=== PATIENT | female | born 1995 | race Hispanic/Latino ===

== ENCOUNTER 2025-01-29 20:41 | Emergency (ER) | payer SELFPAY ==
[~2025-01-29] VITALS: Ht 157.5 cm; Wt 62.1 kg
[2025-01-29 21:32] LABS: IMMATURE GRANULOCYTE ABSOLUTE 0.03 K/uL (0-1); NUCLEATED RED BLOOD CELLS 0.0 % (0.0-0.19); PLATELET COUNT (AUTO) 273 K/uL (130-400); RED BLOOD CELL COUNT(AUTO) 4.32 MIL/uL (4.00-5.50); RED CELL DISTRIBUTION WIDTH 11.9 % (11.0-15.5); WHITE BLOOD COUNT (AUTO) 11.4 K/uL (4.8-10.8)
[2025-01-29 21:38] VITALS: BP 108/74; PULSE 91; RESP 20; TEMP 98.9; O2SAT 100
[2025-01-29 21:38] LABS: CREATININE 0.9 mg/dL (0.5-1.0); GLOMERULAR FILTR. RATE CALC 90.0 mL/min (>90); GLUCOSE,RANDOM 101.0 mg/dL (70-105); SODIUM SERUM 136.0 mmol/L (136-145); UREA NITROGEN, BLOOD 11.0 mg/dL (7-18)
--- NOTE | 2025-01-29 21:55 | ERN ---
ED Note History of Present Illness Stated Complaint: C/O DIARRHEA W/BURNING SENSATION TO ABD Chief Complaint: Diarrhea Time Seen by MD: 20:44 Dictation: 29-YEAR-OLD HEALTHY FEMALE PRESENTS TO ER COMPLAINTS OF 3 DIARRHEA EPISODES TODAY. COMPLAINTS OF BURNING TO ABDOMEN. DENIES FEVER OR VOMITING. Allergies: Coded Allergies: No Known Drug Allergies (Unverified Allergy, Unknown, 01/29/25) Past Medical History Past Medical History: No Pertinent History Surgical History: None LMP: Jan 20, 2025 Review of System Dictation CONSTITUTIONAL: NEGATIVE FOR FEVER,CHILLS, AND WEIGHT LOSS EYES: NEGATIVE FOR INJURY, PAIN,REDNESS, AND DISCHARGE ENT: NEGATIVE FOR INJURY,PAIN OR SWELLING CARDIOVASCULAR: NEGATIVE FOR CHEST PAIN, PALPITATIONS, AND EDEMA RESPIRATORY: NEGATIVE FOR SHORTNESS OF BREATH, COUGH, WHEEZING, AND PLEURITIC CHEST PAIN ABDOMEN/GI: POSITIVE FOR DIARRHEA, ABDOMINAL PAIN BACK: NEGATIVE FOR INJURY AND PAIN : NEGATIVE FOR INJURY, BLEEDING AND DISCHARGE MS/EXTREMITY: NEGATIVE FOR INJURY AND DEFORMITY SKIN: NEGATIVE FOR RASH, AND DISCOLORATION NEURO: NEGATIVE FOR HEADACHE, WEAKNESS, NUMBNESS, TINGLING, AND SEIZURE PSYCH: NEGATIVE FOR SUICIDE IDEATION, HOMICIDAL IDEATION, AND HALLUCINATIONS ALLERGY/IMMUNOLOGY: NEGATIVE FOR HIVES, RASH, AND ALLERGIES Initial Vital Sign VS Vital Signs Date Time Temp Pulse Resp B/P (MAP) Pulse Ox O2 Delivery O2 Flow Rate FiO2 01/29/25 20:44 99.0 101 20 106/64 100 Room Air 01/29/25 21:38 0 21 Physical Exam Dictation GENERAL: AWAKE, ALERT, NAD HEAD/FACE: NORMOCEPHALIC, ATRAUMATIC EYES: PERRL, EOMI, VISION AT BASELINE ENT: ORAL CAVITY CLEAR, TMS CLEAR, NO SIGNS OF INFECTION NECK: TRACHEA MIDLINE, SUPPLE, NO NUCHAL RIGIDITY CARDIOVASCULAR: RRR, NORMAL S1/S2, NO MRGS, NO JVD RESPIRATORY: CTAB, NO RESPIRATORY DISTRESS, NO RALES OR WHEEZES ABDOMEN: SOFT, NON-TENDER, NON-DISTENDED, NORMAL BOWEL SOUNDS, NO GUARDING OR REBOUND. SKIN: WARM, DRY, NORMAL TURGOR, NO RASH MS/EXTREMITY: PULSES EQUAL, NO CYANOSIS, NEUROVASCULAR INTACT, FROM NEURO: COAX4, GCS 15, STRENGTH 5/5, CN 2-12 INTACT, NORMAL CEREBELLAR EXAM, NORMAL GAIT, PSYCH: NORMAL BEHAVIOR, MOOD, AND AFFECT NORMAL Results (Laboratory/Radiology) Laboratory/Radiology Laboratory Tests Test 01/29/25 21:22 White Blood Count 11.4 K/uL (4.8-10.8) H Red Blood Count 4.32 MIL/uL (4.00-5.50) Hemoglobin 14.5 g/dL (12.0-16.0) Hematocrit 39.3 % (36-48) Mean Corpuscular Volume 91.0 fL (79-99) Mean Corpuscular Hemoglobin 33.6 pg (27.0-33.0) H Mean Corpuscular Hemoglobin Concent 36.9 g/dL (32.0-36.0) H Red Cell Distribution Width 11.9 % (11.0-15.5) Platelet Count 273 K/uL (130-400) Mean Platelet Volume 11.4 fL (7.5-10.5) H Immature Granulocyte % (Auto) 0.3 % (0-1) Neutrophils (%) (Auto) 80.7 % (40.0-77.0) H Lymphocytes (%) (Auto) 11.9 % (21.0-51.0) L Monocytes (%) (Auto) 6.2 % (3.0-13.0) Eosinophils (%) (Auto) 0.5 % (0.0-8.0) Basophils (%) (Auto) 0.4 % (0.0-5.0) Neutrophils # (Auto) 9.2 K/uL (1.8-7.7) H Lymphocytes # (Auto) 1.4 K/uL (1.0-4.8) Monocytes # (Auto) 0.7 K/uL (0.1-1.0) Eosinophils # (Auto) 0.06 K/uL (0.00-0.70) Basophils # (Auto) 0.05 K/uL (0.00-0.20) Absolute Immature Granulocyte (auto 0.03 K/uL (0-1) Nucleated Red Blood Cells 0.0 % (0.0-0.19) Red Blood Cell Morphology See comments Sodium Level 136 mmol/L (136-145) Potassium Level 3.9 mmol/L (3.5-5.1) Chloride Level 103 mmol/L (101-111) Carbon Dioxide Level 30 mmol/L (21-32) Blood Urea Nitrogen 11 mg/dL (7-18) Creatinine 0.9 mg/dL (0.5-1.0) Glomerular Filtration Rate Calc 90 mL/min (>90) Random Glucose 101 mg/dL (70-105) Total Calcium 9.1 mg/dL (8.5-10.1) ED Course ED Course Orders Procedure Category Date Status Time Cbc With Differential LAB 01/29/25 Complete 21:14 Basic Metabolic Panel LAB 01/29/25 Complete 21:14 Lidocaine Hcl 2% PHA 01/29/25 Complete Viscous (Lidocaine Hcl 21:30 Dicyclomine Hcl PHA 01/29/25 Complete (Bentyl 10mg/5ml 22:30 Mag/Alum/Simeth 30ml PHA 01/29/25 Complete (Maalox Plus 30ml) 22:30 Mag/Alum/Simeth 30ml PHA 01/29/25 Complete (Maalox Plus 30ml) 22:16 Current Medications Medications (Trade) Dose Ordered Sig/Aminata Route PRN Reason Start Time Stop Time Status Last Admin Dose Admin Al Hydroxide/Mg Hydroxide (MAALox PLUS 30ML) 30 ml ONCE ONCE PO 01/29/25 22:30 01/29/25 22:29 DC 01/29/25 22:17 Al Hydroxide/Mg Hydroxide (MAALox PLUS 30ML) 30 ml STK-MED ONCE .ROUTE 01/29/25 22:16 01/29/25 22:19 DC Dicyclomine HCl (Bentyl 10mg/5ml Syrup) 10 mg ONCE ONCE PO 01/29/25 22:30 01/29/25 22:29 DC 01/29/25 22:17 Lidocaine HCl (Lidocaine HCl 2% Viscous) 10 ml ONCE ONCE PO 01/29/25 21:30 01/29/25 22:10 DC 01/29/25 22:17 Vital Signs Date Time Temp Pulse Resp B/P (MAP) Pulse Ox O2 Delivery O2 Flow Rate FiO2 01/29/25 21:38 99.0 91 20 108/74 100 Room Air* 0 21 01/29/25 20:44 99.0 101 20 106/64 100 Room Air Medical Decision Making MDM 29-YEAR-OLD HEALTHY MALE PRESENTS TO ER COMPLAINTS OF 3 EPISODES OF DIARRHEA AND ABDOMINAL BURNING SENSATION. DENIES FEVER OR VOMITING. UPON ASSESSMENT ABDOMEN IS SOFT AND NONTENDER. WBC SLIGHTLY ELEVATED CONSISTENT WITH DUE TO DIARRHEA. PATIENT DENIES ANY BLOOD IN STOOL. MDM: DIFFERENTIAL DIAGNOSIS: VIRAL GASTROENTERITIS, BACTERIAL GASTROENTERITIS, RATIONALE: TESTS CONSIDERED AND ORDERED SECONDARY TO SHARED DECISION MAKING INCLUDE: LABS, ECG AND RADIOLOGY PREVIOUS OUTSIDE RECORDS REVIEWED: OLD ER VISITS. RISK OF COMPLICATION AND/OR MORBIDITY OR MORTALITY OF PATIENT MANAGEMENT: NONE MEDICATIONS-PER MEDICATION RECONCILIATION NEED FOR HOSPITALIZATION: PATIENT DOES NOT MEET CRITERIA FOR HOSPITALIZATION. NEED FOR EMERGENCY MAJOR/MINOR SURGERY: NO PATIENT'S SYMPTOMS IMPROVED IN ER AFTER MEDICATION. PATIENT EDUCATED ON MONITORING AND SYMPTOMS OF WORSENING CONDITION. ADVISED TO STAY WELL HYDRATED. PATIENT VSS, NAD, NONTOXIC, STABLE FOR DISCHARGE. PT GIVEN DISCHARGE INST RUCTIONS IN [place] TERMS AND UNDERSTOOD, ALL QUESTIONS ANSWERED. PT WILL FOLLOW UP WITH PCP AND RETURN TO THE ER IF WORSE. THERE ARE NO SOCIAL CONCERNS WITH THIS PATIENT. PRESCRIPTION DRUG MANAGEMENT PRESCRIPTIONS WILL INCLUDE SYMPTOMATIC CARE PATIENT'S PRIOR EXTERNAL MEDICAL RECORDS FROM OTHER ER VISITS WERE REVIEWED BY ME INDICATED. PRIOR TESTING AND RESULTS FROM PREVIOUS VISITS WERE REVIEWED. PRIOR TESTS WERE TAKEN INTO ACCOUNT WITH MEDICAL DECISION MAKING AND RESOURCE UTILIZATION, INDEPENDENT HISTORIAN/HISTORIANS WERE USED TO OBTAIN COMPLETE MEDICAL HISTORY. I INDEPENDENTLY INTERPRETED THE TEST THAT WERE PERFORMED, RESULTS WERE REVIEWED BY ME AND CONSIDERED FINDINGS ON RADIOLOGY IF ORDERED. DX & DISP Disposition: Discharge Departure Impression: Primary Impression: Viral gastroenteritis Condition: Stable Additional Instructions: FOLLOW-UP WITH YOUR PCP IN 24-72 HOURS AND IN THE EVENT IF SYMPTOMS WORSEN OR AN EMERGENCY OVERNIGHT REPORT TO THE ED IMMEDIATELY Referrals: SELF,REFERRAL (PCP) ACE MERRITT NP Jan 29, 2025 21:55
[2025-01-29] MEDS: LIDOCAINE HCL 2% VISCOUS 15 ML UDCUP PO ONE (22:17)
[2025-01-29] MEDS: DICYCLOMINE HCL 10 MG/5 ML ML PO ONE (22:17)
[2025-01-29] MEDS: MAG/ALUM/SIMETH 30 ML UDCUP PO ONE (22:17)
[2025-01-29] MEDS: MAG/ALUM/SIMETH 30 ML UDCUP ONE (22:20)
== END 2025-01-29 22:29 | disposition home or self-care (01) ==
LOC: EDH 20:41 → EEVIPCON 20:41 → EDH 22:29
DX: A08.4 Viral intestinal infection, unspecified (principal)
CPT/HCPCS: 36415; 80048; 85025; 99284